=== PATIENT | male | born 1995 | race Caucasian/White ===

== ENCOUNTER 2016-10-14 00:31 | Emergency (ER) | payer MEDICARE | END 2016-10-14 00:47 | disposition home or self-care (01) | LOC: ER1 00:31 | DX: Z53.21 Procedure and treatment not carried out due to patient leaving prior to being seen by health care provider (principal) ==

== ENCOUNTER 2017-02-10 13:52 | Emergency (ER) | payer MEDICARE | END 2017-02-10 16:15 | disposition home or self-care (01) | LOC: ER1 13:52 | DX: S05.02XA Injury of conjunctiva and corneal abrasion without foreign body, left eye, initial encounter (principal); F17.210 Nicotine dependence, cigarettes, uncomplicated; H54.41 Blindness, right eye, normal vision left eye; X58.XXXA Exposure to other specified factors, initial encounter | CPT/HCPCS: 99283 ==

== ENCOUNTER 2021-01-06 05:01 | Inpatient (IN) | payer OTHER ==
[~2021-01-06] VITALS: Ht 167.6 cm; Wt 90.7 kg
[2021-01-06 08:29] LABS: HEMOGLOBIN 15.1 gm/dl (14.0-17.5); RED BLOOD COUNT 4.75 M/UL (4.20-5.50); WHITE BLOOD COUNT 10.1 K/UL (4.5-11.0)
[2021-01-06 08:56] LABS: BUN/CREATININE RATIO 12 (0-10)
[2021-01-07 05:35] LABS: HEMOGLOBIN 14.2 gm/dl (14.0-17.5); RED BLOOD COUNT 4.54 M/UL (4.20-5.50)
[2021-01-07 05:51] LABS: WHITE BLOOD COUNT 4.9 K/UL (4.5-11.0)
[2021-01-07 06:01] LABS: BUN/CREATININE RATIO 22 (0-10)
[2021-01-07 08:13] LABS: HBSAG SCREEN Negative (Negative); HEP A AB, IGM Negative (Negative); HEP B CORE AB, IGM Negative (Negative); HEP C VIRUS AB >11.0 (0.0-0.9)
[2021-01-08 04:33] LABS: HEMOGLOBIN 14.8 gm/dl (14.0-17.5); RED BLOOD COUNT 4.73 M/UL (4.20-5.50)
[2021-01-08 04:35] LABS: WHITE BLOOD COUNT 6.9 K/UL (4.5-11.0)
[2021-01-08 04:56] LABS: BUN/CREATININE RATIO 8 (0-10)
[2021-01-08] MEDS ORDERED: BACTRIM DS TAB1 EACH PO (09:45)
[2021-01-09 16:10] LABS: FINAL INTERPRETATION Negative (.); HIV 1 AB Negative (Negative); HIV 2 AB Negative (Negative)
== END 2021-01-08 13:46 | disposition home or self-care (01) | DRG 603 ==
LOC: ER1 05:01 → CDU 11:57 → M/S 14:17
PROVIDERS: Emergency Medicine; Physician Assistant; ADMIT Family Medicine
PROC: B24BZZ4 Ultrasonography of Heart with Aorta, Transesophageal (ICD-10-PCS; principal; 2021-01-06)
DX: L03.116 Cellulitis of left lower limb (principal); L03.115 Cellulitis of right lower limb; Z20.822 Contact with and (suspected) exposure to COVID-19; F19.10 Other psychoactive substance abuse, uncomplicated; B19.20 Unspecified viral hepatitis C without hepatic coma; F17.210 Nicotine dependence, cigarettes, uncomplicated; Z82.49 Family history of ischemic heart disease and other diseases of the circulatory system
CPT/HCPCS: ECHO; 36415; 71045; 80048; 80053; 80074; 80202; 82550; 82553; 83605; 83874; 83880; 84484; 85025; 85379; 85610; 85652; 85730; 86140; 86701; 86702; 87040; 93005; 93306; 96374; 96375; 99285; J1650; J1885; J2405; J2543; J3370; J7030; J7070; Q9967; U0002